=== PATIENT | female | born 1985 | race Caucasian/White ===

== ENCOUNTER → 2017-02-07 | Day surgery (SDC) | payer BC ==
[~2017-02-07] MED LIST: BIRTH CONTROL PILL PO
--- NOTE | ~2017-02-07 | OR ---
Unit #: [id number] #: [id number] Patient: ANISA CIFUENTES [id number] [address] [address] [id number] O MR#: [id number] NAME: ANISA CIFUENTES ROOM: Date of Procedure: 02/07/2017 Admission Date: 02/07/2017 Surgeon: Ancelmo Linder M.D. : 1985 Attending Physician: Ancelmo Linder M.D. Primary Care Physician: Primary Care Physician No OPERATIVE REPORT PROCEDURE PERFORMED Colonoscopy with biopsies to terminal ileum. INDICATIONS FOR PROCEDURE A 31-year-old female with irregular bowel movements, abdominal pain, also with blood in the stool, undergoing evaluation with colonoscopy. MEDICATIONS Monitored anesthesia. POSTOPERATIVE FINDINGS 1. Colonoscopy completely normal all the way to the cecum. Random biopsies taken looking for microscopic colitis. 2. Terminal ileum was normal. 3. Small internal and large external hemorrhoids. PLAN Refer to [facility] for hemorrhoidectomy. Follow up on pathology report. DESCRIPTION OF PROCEDURE The patient was explained of the procedure, risks, and benefits along with risks and benefits of anesthesia. She was brought to the endoscopy room. Propofol anesthesia was given. Rectal exam was done, which shows external hemorrhoids. The scope was lubricated, passed up the rectum, advanced under direct vision all the way to cecum. Cecum was identified by ileocecal valve and appendiceal orifice. I then started to pull the scope out carefully looking. Terminal ileum was normal. Colonic mucosa was normal. Random biopsies taken. I retroflexed in the rectum, internal hemorrhoids noted also. Gently, the scope was pulled out. She tolerated it well. Dictated by... Loly Morris/[place] TD: 02/07/2017 18:03 JOB #: [id number] Unit #: [id number] #: [id number] Patient: ANISA CIFUENTES OPERATIVE REPORT Page 1 of 1 X Ancelmo Linder MD PROCEDURE OPERATIVE NOTE
[2017-02-07 08:07] LABS: BASOPHIL% 0.4 % (0-2.5); EOSINOPHIL% 0.8 % (0.0-7.0); HEMATOCRIT 37.1 % (35.0-45.0); HEMOGLOBIN 12.6 gm/dL (12.0-16.0); LYMPHOCYTE# 1.9 X10e3 (1.0-3.5); LYMPHOCYTE% 32.3 % (17.0-45.0); MEAN CELL VOLUME 90.5 FL (83-96); MEAN CORPUSCULAR HEMOGLOBIN 30.8 PG (28-34); MEAN CORPUSCULAR HGB CONC 34.1 g/dL (30-36); MEAN PLATELET VOLUME 8.7 FL (6.5-11.5); MONOCYTE# 0.4 X10e3 (0-1.0); MONOCYTE% 6.7 % (3.0-12.0); NEUTROPHIL# 3.4 X10e3 (1.5-7.1); NEUTROPHIL% 59.8 % (40-75); PLATELET COUNT 203 X10e3 (140-420); RED CELL DISTRIBUTION WIDTH 13.2 % (11.0-15.5); WHITE BLOOD COUNT 5.7 X10e3 (4.0-10.5)
[2017-02-07 08:08] LABS: DIFF IND NO
[2017-02-07 08:33] LABS: ALBUMIN SERUM 3.8 g/dL (3.5-5.0); BILIRUBIN,TOTAL 0.9 mg/dL (0.2-2.0); BUN/CREATININE RATIO 12.85; CALCIUM SERUM 8.6 mg/dL (8.4-10.2); CREATININE SERUM 0.7 mg/dL (0.6-1.4); GLOM FILT RATE Estimated 114.6 mL/min (>60); POTASSIUM 4.3 mmol/L (3.5-5.1); PROTEIN TOTAL SERUM 6.5 g/dL (6.0-8.3)
== END | disposition home or self-care (01) ==
LOC: COPS 06:25
PROVIDERS: Internal Medicine
DX: K64.8 Other hemorrhoids (principal); K64.4 Residual hemorrhoidal skin tags
CPT/HCPCS: 80053; 84703; 85025; 88305; J2250